=== PATIENT | male | born 1950 | race Caucasian/White ===

== ENCOUNTER 2023-01-09 18:24 | Inpatient (IN) | payer MEDICARE, MEDICAID ==
[~2023-01-09] VITALS: Ht 180.3 cm; Wt 96.6 kg
[2023-01-09 19:18] LABS: BASOPHILS % (AUTO) 0.8 % (0.0-2.0); EOSINOPHILS % (AUTO) 0.4 % (1.0-6.0); HEMATOCRIT 36.2 % (41-53); HEMOGLOBIN 11.3 g/dL (13.5-17.5); LYMPHOCYTES # (AUTO) 1.6 K/uL (1.0-4.8); LYMPHOCYTES % (AUTO) 37.9 % (22.0-44.0); MEAN CORPUSCULAR HEMOGLOBIN 27.5 pg (26.0-34.0); MEAN CORPUSCULAR HGB CONC 31.3 G/dL (31.0-37.0); MEAN CORPUSCULAR VOLUME 88 fL (80-100); MONOCYTES # (AUTO) 0.4 K/uL (0.1-1.0); MONOCYTES % (AUTO) 8.8 % (2.0-9.0); NEUTROPHILS # (AUTO) 2.1 K/uL (1.8-7.7); NEUTROPHILS % (AUTO) 52.1 % (40.0-70.0); PLATELET COUNT (AUTO) 118 K/uL (150-450); RED BLOOD CELL COUNT(AUTO) 4.12 MIL/uL (4.50-5.90)
[2023-01-09] MEDS ORDERED: TOPI100T37 PO (19:19)
[2023-01-09] MEDS ORDERED: GABA-1216 PO (19:19)
[2023-01-09] MEDS ORDERED: SERT-162 PO (19:19)
[2023-01-09] MEDS ORDERED: MEMA10TA11 PO (19:19)
[2023-01-09] MEDS ORDERED: CYAN-42 IM (19:19)
[2023-01-09] MEDS ORDERED: ASPI-989 PO (19:19)
[2023-01-09] MEDS ORDERED: OXYB5TAB20 PO (19:19)
[2023-01-09] MEDS ORDERED: BUSP15 PO (19:19)
[2023-01-09] MEDS ORDERED: ACET325S20 PR (19:19)
[2023-01-09] MEDS ORDERED: ATOR10TA PO (19:19)
[2023-01-09] MEDS ORDERED: LAMO100 PO (19:19)
[2023-01-09] MEDS ORDERED: OXYC5 PO (19:19)
[2023-01-09] MEDS ORDERED: QUET25TA PO (19:19)
[2023-01-09] MEDS ORDERED: LOSA-382 PO (19:19)
[2023-01-09] MEDS ORDERED: NEBI5TAB2 PO (19:19)
[2023-01-09 19:27] LABS: ANION GAP 15 mmol/L (8-16); CALCIUM, TOTAL 8.7 mg/dL (8.8-10.5); CARBON DIOXIDE 20 mmol/L (22-29); CHLORIDE 107 mmol/L (98-107); CREATININE 1.16 mg/dL (0.60-1.30); GLOMERULAR FILTR. RATE CALC > 60 mL/min (>60); GLUCOSE,RANDOM 78 mg/dL (70-110); POTASSIUM 4.9 mmol/L (3.5-5.1); SODIUM SERUM 142 mmol/L (136-145); UREA NITROGEN, BLOOD 19 mg/dL (7-18)
[2023-01-09 19:33] LABS: ALANINE AMINOTRANSFERASE 21 U/L (12-78); ALBUMIN 3.4 g/dL (3.4-5.0); ALKALINE PHOSPHATASE 137 U/L (46-116); ASPARTATE AMINOTRANSFERASE 37 U/L (15-37); BILIRUBIN,TOTAL 0.4 mg/dL (0.1-1.0); TOTAL PROTEIN, SERUM 7.3 g/dL (6.4-8.2)
[2023-01-09 19:34] LABS: COVID AG,FIA SOURCE NASOPHARYNGEAL
[2023-01-09] MEDS ORDERED: LORazepam 2 MG TABLET PO ONE (21:15)
[2023-01-09] MEDS ORDERED: ZOLPIDEM TARTRATE 10 MG TABLET PO PRN (21:30)
[2023-01-09] MEDS ORDERED: HALOPERIDOL 5 MG TABLET PO PRN (21:30)
[2023-01-09 22:39] LABS: AMPHET/METH SCREEN,URINE NEGATIVE (NEGATIVE); BARBITURATE SCREEN, URINE NEGATIVE (NEGATIVE); BENZODIAZEPINES SCREEN,URINE NEGATIVE (NEGATIVE); CANNABINOID SCREEN,URINE NEGATIVE (NEGATIVE); COCAINE SCREEN,URINE NEGATIVE (NEGATIVE); METHADONE SCREEN, URINE NEGATIVE (NEGATIVE); OPIATE SCREEN,URINE NEGATIVE (NEGATIVE); PHENCYCLIDINE SCREEN,URINE NEGATIVE (NEGATIVE)
[2023-01-10 01:15] VITALS: BP 155/82
[2023-01-10] MEDS: LORazepam 2 MG TABLET PO PRN ×3 (02:17→20:44)
[2023-01-10 04:02] LABS: APPEARANCE,URINE CLEAR (CLEAR); BILIRUBIN,URINE NEGATIVE (NEGATIVE); GLUCOSE, URINE (UA) NEGATIVE (NEGATIVE); LEUKOCYTE ESTERASE ,URINE NEGATIVE (NEGATIVE); NITRATE,URINE NEGATIVE (NEGATIVE); OCCULT BLOOD,URINE SMALL (NEGATIVE); PH,URINE 5.5 (5.0-8.0); PROTEIN,URINE 30-70 mg/dL (NEGATIVE); SPECIFIC GRAVITIY, URINE 1.014 (1.003-1.030); UROBILINOGEN,URINE <=1.0 mg/dL (<=1.0)
[2023-01-10 04:35] LABS: BACTERIA,URINE None Seen /HPF (None Seen); RBC,URINE 0-2 /HPF (0-2); SQUAMOUS EPITHELIAL CELL,UR None Seen /LPF (None Seen); WBC,URINE None Seen /HPF (0-5)
[2023-01-10] MEDS ORDERED: MAGNESIUM HYDROXIDE SUSPENSION 30 ML UDCUP PO PRN (06:30)
[2023-01-10] MEDS ORDERED: NICOTINE 14 MG/24 HOUR PATCH TD PRN (06:30)
[2023-01-10] MEDS ORDERED: LOPERAMIDE HCL 2 MG CAPSULE PO PRN (06:30)
[2023-01-10] MEDS ORDERED: CloNIDine HCL 0.1 MG TABLET PO PRN (06:30)
[2023-01-10] MEDS ORDERED: PETROLATUM,WHITE 28 GM JELLY TP PRN (06:30)
[2023-01-10] MEDS ORDERED: IBUPROFEN 400 MG TABLET PO PRN (06:30)
[2023-01-10] MEDS ORDERED: ONDANSETRON HCL 4 MG TABLET PO PRN (06:30)
[2023-01-10] MEDS ORDERED: DOCUSATE SODIUM 100 MG CAPSULE PO PRN (06:30)
[2023-01-10] MEDS ORDERED: MAG HYDROX/AL HYDROX/SIMETH ES 30 ML SUSPENSION UDCUP PO PRN (06:30)
[2023-01-10] MEDS ORDERED: ACETAMINOPHEN 325 MG TABLET PO PRN ×2 (06:30→07:00)
[2023-01-10] MEDS ORDERED: ALBUTEROL SULFATE HFA 90 MCG/PUFF 8 GM INHALER IH PRN (06:30)
[2023-01-10] MEDS ORDERED: GuaiFENesin/D-METHORPHAN [SUGAR-FREE] 200-20MG/10 ML SYRUP UDCUP PO PRN (06:30)
[2023-01-10 08:33] VITALS: BP 164/98
[2023-01-10] MEDS: LOSARTAN POTASSIUM 50 MG TABLET PO SCH (09:13)
[2023-01-10] MEDS: MEMANTINE HCL 10 MG TABLET PO SCH ×2 (09:14→18:09)
[2023-01-10] MEDS: ATORVASTATIN CALCIUM 10 MG TABLET PO SCH (09:14)
[2023-01-10] MEDS: OXYBUTYNIN CHLORIDE 5 MG TABLET PO SCH (09:14)
[2023-01-10] MEDS: LamoTRIgine 100 MG TABLET PO SCH (09:15)
[2023-01-10] MEDS: CYANOCOBALAMIN 1,000 MCG/ML VIAL IM SCH (09:16)
[2023-01-10] MEDS: NEBIVOLOL HCL 5 MG TABLET PO SCH (10:59)
[2023-01-10] MEDS: SERTRALINE HCL 100 MG TABLET PO SCH (12:00)
[2023-01-10] MEDS: QUEtiapine FUMARATE 25 MG TABLET PO SCH ×2 (12:00→20:13)
[2023-01-10] MEDS: BusPIRone HCL 15 MG TABLET PO SCH (18:10)
[2023-01-10 21:21] VITALS: BP 153/100
[2023-01-11 08:00] VITALS: BP 157/80
[2023-01-11] MEDS: LamoTRIgine 100 MG TABLET PO SCH (08:48)
[2023-01-11] MEDS: SERTRALINE HCL 100 MG TABLET PO SCH (08:48)
[2023-01-11] MEDS: ATORVASTATIN CALCIUM 10 MG TABLET PO SCH (08:49)
[2023-01-11] MEDS: OXYBUTYNIN CHLORIDE 5 MG TABLET PO SCH (08:50)
[2023-01-11] MEDS: LOSARTAN POTASSIUM 50 MG TABLET PO SCH (08:50)
[2023-01-11] MEDS: NEBIVOLOL HCL 5 MG TABLET PO SCH (08:50)
[2023-01-11] MEDS: QUEtiapine FUMARATE 25 MG TABLET PO SCH ×2 (08:50→21:21)
[2023-01-11] MEDS: BusPIRone HCL 15 MG TABLET PO SCH ×2 (08:52→17:37)
[2023-01-11] MEDS: CYANOCOBALAMIN 1,000 MCG/ML VIAL IM SCH (08:53)
[2023-01-11] MEDS: MEMANTINE HCL 10 MG TABLET PO SCH ×2 (08:53→17:37)
[2023-01-11] MEDS: LORazepam 2 MG TABLET PO PRN ×2 (08:59→21:21)
[2023-01-11] MEDS: OXYBUTYNIN CHLORIDE 5 MG ER TABLET PO SCH (14:21)
[2023-01-11 16:33] VITALS: BP 138/95
[2023-01-11 20:15] VITALS: BP 140/81
[2023-01-12] MEDS: LORazepam 2 MG TABLET PO PRN ×2 (06:54→11:15)
[2023-01-12 08:50] VITALS: BP 152/86
[2023-01-12] MEDS ORDERED: OXYBUTYNIN CHLORIDE 5 MG ER TABLET PO SCH (09:00)
[2023-01-12] MEDS: OXYBUTYNIN CHLORIDE 5 MG ER TABLET PO SCH (10:12)
[2023-01-12] MEDS: QUEtiapine FUMARATE 25 MG TABLET PO SCH (10:13)
[2023-01-12] MEDS: SERTRALINE HCL 100 MG TABLET PO SCH (10:13)
[2023-01-12] MEDS: LamoTRIgine 100 MG TABLET PO SCH (10:14)
[2023-01-12] MEDS: MEMANTINE HCL 10 MG TABLET PO SCH (10:14)
[2023-01-12] MEDS: ATORVASTATIN CALCIUM 10 MG TABLET PO SCH (10:14)
[2023-01-12] MEDS: LOSARTAN POTASSIUM 50 MG TABLET PO SCH (10:15)
[2023-01-12] MEDS: NEBIVOLOL HCL 5 MG TABLET PO SCH (10:15)
[2023-01-12] MEDS: BusPIRone HCL 15 MG TABLET PO SCH (10:16)
[2023-01-12] MEDS: CYANOCOBALAMIN 1,000 MCG/ML VIAL IM SCH (11:15)
[2023-01-12] MEDS ORDERED: LAMO100 PO (13:20)
[2023-01-12] MEDS ORDERED: ATOR10TA69 PO (13:20)
[2023-01-12] MEDS ORDERED: OXYB-34 PO ×2 (13:20→13:53)
[2023-01-12] MEDS ORDERED: QUET25TA36 PO (13:20)
[2023-01-12] MEDS ORDERED: SERT-440 PO (13:20)
[2023-01-12] MEDS ORDERED: NEBI5TAB2 PO (13:20)
[2023-01-12] MEDS ORDERED: MEMA10TA11 PO (13:20)
[2023-01-12] MEDS ORDERED: LOSA-382 PO (13:20)
[2023-01-12] MEDS ORDERED: BUSP15 PO (13:20)
[2023-01-13] MEDS ORDERED: OXYBUTYNIN CHLORIDE 5 MG ER TABLET PO SCH (09:00)
== END 2023-01-12 15:41 | disposition home or self-care (01) | DRG 885 ==
LOC: EMS 18:28 → 3EX 22:07
PROVIDERS: ADMIT Psychiatry & Neurology Psychiatry; ATTEND Psychiatry & Neurology Psychiatry
DX: F25.0 Schizoaffective disorder, bipolar type (principal); F03.918 Unspecified dementia, unspecified severity, with other behavioral disturbance; R45.851 Suicidal ideations; D64.9 Anemia, unspecified; F10.20 Alcohol dependence, uncomplicated; G40.909 Epilepsy, unspecified, not intractable, without status epilepticus; I10 Essential (primary) hypertension; I48.0 Paroxysmal atrial fibrillation; I89.0 Lymphedema, not elsewhere classified; K21.9 Gastro-esophageal reflux disease without esophagitis; Y90.6 Blood alcohol level of 120-199 mg/100 ml; I73.00 Raynaud's syndrome without gangrene; Z20.822 Contact with and (suspected) exposure to COVID-19; Z79.899 Other long term (current) drug therapy; Z88.2 Allergy status to sulfonamides; Z91.013 Allergy to seafood
CPT/HCPCS: 71045; 80053; 80307; 81001; 85025; 87081; 93005; 99285; G0378; G0480; J3420; 36415-L1; 36415-TC